=== PATIENT | male | born 1995 | race Caucasian/White ===

== ENCOUNTER 2017-03-03 19:46 | Emergency (ER) | payer SELFPAY ==
[~2017-03-03] VITALS: Ht 180.3 cm; Wt 79.4 kg
[2017-03-03] MEDS ORDERED: NAPR500T3 PO (20:23)
--- NOTE | 2017-03-03 20:23 | ED Upper Extremity ---
General Chief Complaint: Upper Extremity Stated Complaint: NUMBNESS IN BOTH ARMS Nursing Triage Note: PT TO ED 5 W/ C/O BILATERAL UPPER EXTREMITY PAIN, SWELLING, NUMBNESS ONSET X2 WKS AGO. REPORTS WORKING IN [employer] W/ [employer]. NO KNOWN INJURY Nursing Sepsis Screen: No Definite Risk Source: patient History of Present Illness Time seen by provider: 20:13 Initial Comments PT C/O BILATERAL HAND PAIN X 2 WEEKS--STATES IT BEGAN WHEN HE STARTED WORKING THIS JOB STATES HE JUST STARTED WORKING FOR A "[employer]" 2 WEEKS AGO--DOES NOT KNOW NAME OF COMPANY, BUT IS OUT OF [place], [place]. STATES HE HAND SHOVELS DEBRIS ALL DAY LONG--THIS IS NEW ACTIVITY FOR HIM C/O BILATERAL HAND PAIN--MOSTLY TO THUMBS, INDEX AND MIDDLE FINGERS, AND TO LEFT > RIGHT ELBOWS NO SPECIFIC TRAUMA PT IS RIGHT HANDED NO PRIOR HISTORY OF SIMILAR STATES HE HAS BEEN SLOWLY LOSING DEXTERITY TO HIS HANDS ( DIFFICULT TO MAKE A FIST OR FINISH FILER ) BECAUSE IT HURTS HIS HANDS TOO BAD TO FINISH FILER ANYTHING, AND HANDS /FINGERS OCCASIONALLY TINGLE. STATES THIS MORNING "I COULDN'T HARDLY [employer] OPERATOR MY CELL PHONE BECAUSE MY HANDS WERE SO STIFF AND SORE" --BETTER NOW HAD TO CALL IN TO WORK TODAY BECAUSE OF THIS HAS NOT TAKEN ANYTHING FOR PAIN IS HERE TONIGHT BECAUSE HIS MOM SAID "IT MIGHT BE FROM [employer]" NO PCP Allergies and Home Medications Allergies Coded Allergies: No Known Drug Allergies (Unverified , 03/03/17) Home Medications Naproxen 500 Mg Tablet, 500 MG PO BID, #20 Prescribed by: XIANG LOPEZ on 03/03/172022 Constitutional: no symptoms reported Respiratory: no symptoms reported Cardiovascular: no symptoms reported Musculoskeletal: see HPI Skin: no symptoms reported Psychiatric/Neurological: See HPI Past Harkdyt-Zvalxg-Rczmdv Hx Patient Social History Alcohol Use: Occasionally Uses Recreational Drug Use: Yes Drug of Choice: MARIJUANA Smoking Status: Current Everyday Smoker (1/2 PPD) Type Used: Cigarettes Recent Foreign Travel: No Contact w/Someone Who Travel: No Recent Infectious Disease Expo: No Recent Hopitalizations: No Surgeries HX Surgeries: Yes (RIGHT ANKLE FX/ REPAIR) Surgeries: Orthopedic Respiratory Hx Respiratory Disorders: No Cardiovascular Hx Cardiac Disorders: No Neurological Hx Neurological Disorders: No Reproductive System Hx Reproductive Disorders: No Genitourinary Hx Genitourinary Disorders: No Gastrointestinal Hx Gastrointestinal Disorders: No Musculoskeletal Hx Musculoskeletal Disorders: Yes (RIGHT ANKLE FX/REPAIR) Musculoskeletal Disorders: Fractures Endocrine Hx Endocrine Disorders: No HEENT HX ENT Disorders: No Cancer Hx Cancer: No Psychosocial Hx Psychiatric Problems: Yes Behavioral Health Disorders: Anxiety Integumentary HX Skin/Integumentary Disorder: No Blood Transfusions Hx Blood Disorders: No Physical Exam Vital Signs Vital Sign - Last 12Hours 03/03/17 19:53 Temp 96.9 Pulse 88 Resp 20 B/P (MAP) 129/80 Pulse Ox 100 O2 Delivery Room Air Capillary Refill : Less Than 3 Seconds General Appearance: WD/WN, no apparent distress, other (REEKS OF CIGARETTES) Shoulder: normal inspection, non-tender, no evidence of injury, normal ROM Elbow/Forearm: normal inspection, non-tender, no evidence of injury, normal ROM Wrist: Yes normal inspection, Yes non-tender, Yes no evidence of injury, Yes normal ROM Hand: Bilateral (BILATERAL HAND TENDERNESS TO DORSUM AND PALMS OF HANDS OVER FIRST, SECOND AND THIRD METACARPALS. WEAK FINISH FILER BILATERALLY--STATES IT HURTS TO SQUEEZE ANYTHING. MOTOR IS OTHERWISE INTACT-DOES HAVE NEAR-FULL ROM--LIMITED BY PAIN. SENSORY/VASCULAR INTACT. 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 Patient Instructions: Hand Pain (DC), Muscle and Bone Pain (DC), Muscle Strain (DC) Add. Discharge Instructions: SOAK HANDS IN WARM EPSOM SALTS FOR 20 MINUTES, THEN APPLY ICE FOR 20 MINUTES FOLLOW UP WITH OF [facility] IN 1 WEEK IF NO BETTER All discharge instructions reviewed with patient and/or family. Voiced understanding. Scripts Naproxen (Naproxen) 500 Mg Tablet 500 MG PO BID, #20 TAB Prov: XIANG LOPEZ DO 03/03/17 Images Extremities-Upper 1 - Tenderness 1 - Tenderness 1 - Tenderness 1 - Tenderness XIANG LOPEZ DO March 03, 2017 20:23
[2017-03-03 20:25] VITALS: BP 0/0
== END 2017-03-03 20:25 | disposition home or self-care (01) ==
LOC: EDUNIT# 19:46 → ER 19:51
DX: M79.641 Pain in right hand (principal); M79.642 Pain in left hand; X50.3XXA Overexertion from repetitive movements, initial encounter; Y99.8 Other external cause status
CPT/HCPCS: 99282